=== PATIENT | female | born 1980 | race Caucasian/White ===

== ENCOUNTER 2017-02-01 00:23 | Emergency (ER) | payer MEDICAID ==
[2017-02-01 01:01] LABS: Hematocrit 40.4 % (30.3-42.9); Hemoglobin 13.4 gm/dl (10.1-14.3); Mean Corpuscular HGB Conc 33 % (30-34); Mean Corpuscular Hemoglobin 30 pg (28-32); Mean Corpuscular Volume 91 fl (79-97); Platelet Count 236 K/mm3 (140-440); Red Blood Count 4.44 M/mm3 (3.65-5.03); Red Cell Distribution Width 12.3 % (13.2-15.2); White Blood Count 12.2 K/mm3 (4.5-11.0)
[2017-02-01] MEDS ORDERED: NACL 0.9% 1000 ML 1,000 ML IV ONE ×3 (02:09→03:20)
[2017-02-01] MEDS ORDERED: MORPHINE IV ONE ×2 (02:10→05:14)
[2017-02-01] MEDS ORDERED: TORADOL IV ONE (02:10)
[2017-02-01] MEDS ORDERED: ZOFRAN IV ONE (02:10)
[2017-02-01 02:25] LABS: Basophils % (Manual) 0 % (0.0-1.8); Blastocytes % (Manual) 0 %; Eosinophils % (Manual) 0 % (0.0-4.3)
[2017-02-01 02:26] LABS: Diff Status Complete; RBC Morphology Normal
--- NOTE | 2017-02-01 03:13 | Emergency Department Report ---
ED Female HPI - General Chief complaint: Vaginal Bleeding Stated complaint: POSS MISCARRIAGE 12 WKS PREG Time Seen by Provider: 02/01/17 01:52 Source: patient, family Mode of arrival: Wheelchair Limitations: Language Barrier - History of Present Illness Initial comments: 36 [id number] female with a history 3 previous miscarriages as as to the hospital with recent diagnosis of demise, vaginal bleeding, and abdominal pain. Patient had ultrasound done last week by her CONTENT MANAGEMENT CONSULTANT doctors told that she had a nonviable fetus at approximately 12 weeks gestational age. Patient prescribed Cytotec. Patient place for 200 g tablets into her vagina at approximately 9:30 PM. Several hours later patient developed heavy vaginal bleeding and increased lower abdominal pain described as a hard pressure. Pain is constant rated 10/10 intensity worse with palpation and no alleviating factor reported. Patient is using 6-7 pads per hour and having heavy vaginal bleeding with clots. Mild dizziness reported without reports of syncope or shortness of breath. CONTENT MANAGEMENT CONSULTANT on her paperwork is Dr. Shante Myers - Related Data Previous Rx's Medication Instructions Recorded Last Taken Type Ibuprofen [Motrin 800 MG tab] 800 mg PO Q8HR PRN #30 tablet 02/01/17 Unknown Rx Allergies Allergy/AdvReac Type Severity Reaction Status Date / Time No Known Allergies Allergy Unverified 11/29/14 10:13 ED Review of Systems ROS: Stated complaint: POSS MISCARRIAGE 12 WKS PREG Other details as noted in HPI Comment: All other systems reviewed and negative Other: Constitutional: No fevers chills Eyes: No eye pain visual changes ENT: No ear pain or throat pain Neck: Denies pain Respiratory: Denies cough wheezing shortness of breath Cardiovascular: Denies chest pain, palpitations, syncope GI: As per HPI : Denies dysuria Musculoskeletal: Denies back pain Skin: Denies rash, lesions, erythema Neurologic: Denies headache, numbness, weakness Psychiatric: Denies suicidal ideation, hallucinations ED Past Medical Hx - Past Medical History Previous Medical History?: No - Surgical History Past Surgical History?: Yes Hx Cholecystectomy: Yes Additional Surgical History: C SECTION - Social History Smoking Status: Never Smoker Substance Use Type: None - Medications Home Medications: Home Medications Medication Instructions Recorded Confirmed Last Taken Type Ibuprofen [Motrin 800 MG tab] 800 mg PO Q8HR PRN #30 tablet 02/01/17 Unknown Rx ED Physical Exam - General Limitations: Language Barrier - Other Other exam information: General: No limitations, patient is alert in no acute distress Head exam: Atraumatic, normocephalic Eyes exam: Normal appearance ENT: Moist mucous membrane, normal oropharynx Neck exam: Normal inspection, full range of motion Respiratory exam: Clear to auscultation bilateral, no wheezes, rales, crackles Cardiovascular: Normal rate and rhythm, normal heart sounds Abdomen: Soft, nondistended, suprapubic tenderness, with normal bowel sounds, no rebound, or guarding : Heavy vaginal bleeding with multiple large clots. I am unable to clear the blood to visualize the cervix at this time Extremity: Full range of motion normal inspection no deformity Back: Normal Inspection, full range of motion, no tenderness Neurologic: Alert, oriented x3, cranial nerves intact, no motor or sensory deficit Psychiatric: normal affect, normal mood Skin: Warm, dry, intact ED Course Vital Signs 02/01/17 02/01/17 02/01/17 00:13 00:25 01:29 Temperature 98.4 F Pulse Rate 75 Respiratory 18 Rate Blood Pressure 101/63 114/79 97/47 Blood Pressure [Left] O2 Sat by Pulse 100 Oximetry 02/01/17 02/01/17 02/01/17 01:44 02:00 02:05 Temperature Pulse Rate 84 Respiratory 16 16 Rate Blood Pressure 96/54 Blood Pressure 103/64 [Left] O2 Sat by Pulse 99 100 Oximetry 02/01/17 02/01/17 02/01/17 03:57 04:00 04:46 Temperature Pulse Rate 86 Respiratory 16 Rate Blood Pressure 111/56 110/53 Blood Pressure 119/51 [Left] O2 Sat by Pulse 100 Oximetry 02/01/17 02/01/17 02/01/17 05:00 06:00 07:00 Temperature Pulse Rate Respiratory Rate Blood Pressure 121/64 106/65 101/47 Blood Pressure [Left] O2 Sat by Pulse 100 100 100 Oximetry 02/01/17 02/01/17 08:00 09:00 Temperature Pulse Rate Respiratory Rate Blood Pressure 112/54 118/73 Blood Pressure [Left] O2 Sat by Pulse 100 100 Oximetry - Consultations Consultation #1: 02/01/17 03:[address] Chi anti air warfare operations officer CONTENT MANAGEMENT CONSULTANT physician. Recommends Methergine IM. We discussed case once ultrasound results and to reassess for improvement in bleeding ED Medical Decision Making - Lab Data Result diagrams: 02/01/17 05:38 - Medical Decision Making Dr. Royal to the ED to evaluate patient and remove further clots from the vaginal canal and cervix. Repeat H&H ultrasound ordered per her request. Case s/o to Dr. Ding for review and to recontact the group after repeat labs and ultrasound. - Differential Diagnosis miscarriage, anemia Critical care attestation.: If time is entered above; I have spent that time in minutes in the direct care of this critically ill patient, excluding procedure time. ED Disposition Clinical Impression: Missed with demise before 20 completed weeks of gestation, Episode of heavy vaginal bleeding Disposition: DISCHARGED TO HOME OR SELFCARE Is pt being admited?: No Does the pt Need Aspirin: No Condition: Stable Instructions: Spontaneous Miscarriage (ED) Prescriptions: Ibuprofen [Motrin 800 MG tab] 800 mg PO Q8HR PRN #30 tablet PRN Reason: Pain Referrals: your, mesh man [Other] - 2-3 Days Time of Disposition: 06:05 (s/o to dR Ramírez)
[2017-02-01] MEDS ORDERED: METHERGINE IM ONE (03:24)
--- NOTE | 2017-02-01 03:41 | Ultrasound Report ---
FINAL REPORT PROCEDURE: US OB TRANSVAGINAL TECHNIQUE: Real-time transvaginal sonography of the uterus, placenta, amniotic fluid, adnexa, and fetus was performed with image documentation. Measurements were obtained to determine age/size. M-mode Doppler was used to document heartbeat. CPT 68494 HISTORY: vag bleeding, hx of demise COMPARISON: No prior studies are available for comparison. FINDINGS: No intrauterine is identified. There is a mass in the lower uterine segment endometrial cavity measuring 2.5 centimeters in diameter which could be hematoma. The uterus measures 12.3 x 6.2 x 6.7 centimeters. The endometrium measures 17 millimeters in thickness. The right ovary is unremarkable. The left ovary is not seen. There is no free fluid. IMPRESSION: Probable endometrial hematoma or retained products of conception in the lower uterine segment.
--- NOTE | 2017-02-01 03:43 | Ultrasound Report ---
FINAL REPORT PROCEDURE: US OB transabdominal TECHNIQUE: Real-time transabdominal sonography of the uterus, placenta, amniotic fluid, adnexa, and fetus was performed with image documentation. Measurements were obtained to determine age/size. HISTORY: vag bleeding, hx of demise COMPARISON: No prior studies are available for comparison. FINDINGS: No intrauterine is identified. There is a mass in the lower uterine segment endometrial cavity measuring 2.5 centimeters in diameter which could be hematoma. The uterus measures 12.3 x 6.2 x 6.7 centimeters. The endometrium measures 17 millimeters in thickness. The right ovary is unremarkable. The left ovary is not seen. There is no free fluid. IMPRESSION: Probable endometrial hematoma or retained products of conception in the lower uterine segment.
[2017-02-01] MEDS ORDERED: MORPHINE ONE (05:11)
--- NOTE | 2017-02-01 05:50 | Consultation ---
History of Present Illness Consult date: 02/01/17 Requesting physician: LOYD MESSINA Reason for consult: menorrhagia, other (s/p medical with possible retained pocs) History of present illness: 36 [id number] female with a history 3 previous miscarriages comes to the hospital with recent diagnosis of demise, vaginal bleeding, and abdominal pain. Patient had ultrasound done last week by her SUBACUTE NURSE doctors told that she had a nonviable fetus at approximately 12 weeks gestational age. Patient prescribed Cytotec. Patient place for 200 g tablets into her vagina at approximately 9:30 PM. Several hours later patient developed heavy vaginal bleeding and increased lower abdominal pain described as a hard pressure. Pain is constant rated 10/10 intensity worse with palpation and no alleviating factor reported. Patient is using 6-7 pads per hour and having heavy vaginal bleeding with clots. Mild dizziness reported without reports of syncope or shortness of breath. SUBACUTE NURSE on her paperwork is Dr. Shante Myers. I was consulted due to the heavy vaginal bleeding. Sono showed no IUP but clots vs retained pocs in lower uterine segment. Fetus was noted in specimen container and was brought in by the pt. Past History Past Medical History: no pertinent history Past Surgical History: section SUBACUTE NURSE History: denies: abnormal PAP smear, cancer, chlamydia, fibroids Social history: no significant social history Medications and Allergies Allergies Allergy/AdvReac Type Severity Reaction Status Date / Time No Known Allergies Allergy Unverified 11/29/14 10:13 Home Medications Medication Instructions Recorded Confirmed Last Taken Type Vit #76/Iron,Carb/FA 1 each PO QDAY #30 tablet 11/29/14 Unknown Rx [Prenatabs Rx Tablet] Acetaminophen/Codeine 1 tab PO Q6H PRN #12 tab 12/16/14 Unknown Rx [Acetaminophen-Codeine #3 TAB] Methylergonovine [Methergine] 0.2 mg PO Q8HR #6 tablet 12/16/14 Unknown Rx Acetaminophen/Codeine [Tylenol #3] 1 tab PO Q6H PRN #12 tab 06/07/15 Unknown Rx Review of Systems All systems: negative - Vital Signs Vital signs: Vital Signs BP 101/63 02/01/17 00:13 Temp Pulse Resp BP Pulse Ox 98.4 F 86 16 119/51 100 02/01/17 00:25 02/01/17 04:46 02/01/17 04:46 02/01/17 04:46 02/01/17 04:46 - Physical Exam Abdomen: Positive: normal appearance, soft. Negative: distention, tenderness, guarding Genitourinary (Female): Positive: normal external genitalia, normal perenium ( blood noted) Vulva: both: normal Vagina: Positive: other (moderate bleeding noted and pooling in the vagina. placental tissue seen) Cervix: Positive: other (initially with moderate bleeding. placental tissue seen and removed with ring forcepts but in pieces. was palpated in lower uterus prior to removal. exam after removal showed minimal to no bleeding and cx closed down to 1cm with no tissue palated or seen on exam) Results Result Diagrams: 02/01/17 00:45 Abnormal lab results 02/01/17 02/01/17 Range/Units 00:45 00:45 WBC 12.2 H (4.5-11.0) K/mm3 RDW 12.3 L (13.2-15.2) % Seg Neutrophils # Man 8.2 H (1.8-7.7) K/mm3 HCG, Quant 185.0 H (0-4) mIU/mL All other labs normal. Assessment and Plan - Patient Problems (1) Incomplete Current Visit: Yes Status: Acute Plan to address problem: -appears that bleeding improved with removal of the placental tissue which with the fetus pt brought with her in the hospital will be sent to path -repeat h/h and if stable would recommend d/c home on doxycycline 100mg po bid x7 days -initial pt was hypotensive but bp has improved at this time with decrease in bleeding, would con't to monitor and if stable again would d/c home with f/u with tobacco stemmer of record(Dr. Myers) on Saturday02/04/17. -I d/w pt family member who interprets for pt and pt plan of care and all questions were addressed and answered. (2) Missed with demise before 20 completed weeks of gestation Current Visit: Yes Status: Acute Plan to address problem: -no records available -will send all specimens removed to path.
[2017-02-01 06:20] LABS: Hematocrit 34.1 % (30.3-42.9); Hemoglobin 11.5 gm/dl (10.1-14.3)
--- NOTE | 2017-02-01 07:02 | Ultrasound Report ---
FINAL REPORT PROCEDURE: US OB TRANSVAGINAL TECHNIQUE: Real-time transvaginal sonography of the uterus, placenta, amniotic fluid, adnexa, and fetus was performed with image documentation. Measurements were obtained to determine age/size. M-mode Doppler was used to document heartbeat. CPT 56022 HISTORY: status post missed COMPARISON: Earlier today FINDINGS: Previously noted hematoma in the lower uterine segment is now the endocervical canal measures 18 x 8 x 19 millimeters. The examination is otherwise limited. The uterus measures 9.5 x 5.7 x 5.9 centimeters. Endometrium is thickened at 10 millimeters. IMPRESSION: Previously noted hematoma in the lower uterine segment is now the endocervical canal measures 18 x 8 x 19 millimeters.
--- NOTE | 2017-02-01 07:58 | Event Note ---
Date: 02/01/17 Laboratory studies reviewed and appreciated. Repeat ultrasound reviewed and appreciated. As per gynecology documentation, patient is going to follow up on February [address] Myers. The patient is going to be given Methergine as per the recommendation of the covering curriculum development specialist Dr. Mckinnon. Blood pressure stable. Temperature precautions are reviewed. Plan to be discharged. Vital Signs 02/01/17 02/01/17 02/01/17 00:13 00:25 01:29 Temperature 98.4 F Pulse Rate 75 Respiratory 18 Rate Blood Pressure 101/63 114/79 97/47 Blood Pressure [Left] O2 Sat by Pulse 100 Oximetry 02/01/17 02/01/17 02/01/17 01:44 02:00 02:05 Temperature Pulse Rate 84 Respiratory 16 16 Rate Blood Pressure 96/54 Blood Pressure 103/64 [Left] O2 Sat by Pulse 99 100 Oximetry 02/01/17 02/01/17 02/01/17 03:57 04:00 04:46 Temperature Pulse Rate 86 Respiratory 16 Rate Blood Pressure 111/56 110/53 Blood Pressure 119/51 [Left] O2 Sat by Pulse 100 Oximetry 02/01/17 02/01/17 05:00 06:00 Temperature Pulse Rate Respiratory Rate Blood Pressure 121/64 106/65 Blood Pressure [Left] O2 Sat by Pulse 100 100 Oximetry Lab Results 02/01/17 02/01/17 02/01/17 Range/Units 00:45 00:45 00:45 WBC 12.2 H (4.5-11.0) K/mm3 RBC 4.44 (3.65-5.03) M/mm3 Hgb 13.4 (10.1-14.3) gm/dl Hct 40.4 (30.3-42.9) % MCV 91 (79-97) fl MCH 30 (28-32) pg MCHC 33 (30-34) % RDW 12.3 L (13.2-15.2) % Plt Count 236 (140-440) K/mm3 Lymph # Seafood Processor Add Manual Diff Complete Total Counted 100 Seg Neuts % (Manual) 67.0 (40.0-70.0) % Band Neutrophils % 0 % Lymphocytes % (Manual) 29.0 (13.4-35.0) % Reactive Lymphs % (Man) 2.0 % Monocytes % (Manual) 2.0 (0.0-7.3) % Eosinophils % (Manual) 0 (0.0-4.3) % Basophils % (Manual) 0 (0.0-1.8) % Metamyelocytes % 0 % Myelocytes % 0 % Promyelocytes % 0 % Blast Cells % 0 % Nucleated RBC % Not Reportable Seg Neutrophils # Man 8.2 H (1.8-7.7) K/mm3 Band Neutrophils # 0.0 K/mm3 Lymphocytes # (Manual) 3.5 (1.2-5.4) K/mm3 Abs React Lymphs (Man) 0.2 K/mm3 Monocytes # (Manual) 0.2 (0.0-0.8) K/mm3 Eosinophils # (Manual) 0.0 (0.0-0.4) K/mm3 Basophils # (Manual) 0.0 (0.0-0.1) K/mm3 Metamyelocytes # 0.0 K/mm3 Myelocytes # 0.0 K/mm3 Promyelocytes # 0.0 K/mm3 Blast Cells # 0.0 K/mm3 WBC Morphology Not Reportable Hypersegmented Neuts Not Reportable Hyposegmented Neuts Not Reportable Hypogranular Neuts Not Reportable Smudge Cells Not Reportable Toxic Granulation Not Reportable Toxic Vacuolation Not Reportable Dohle Bodies Not Reportable Pelger-Huet Anomaly Not Reportable Moise Rods Not Reportable Platelet Estimate Appears normal Clumped Platelets Not Reportable Plt Clumps, EDTA Not Reportable Large Platelets Not Reportable Giant Platelets Not Reportable Platelet Satelliting Not Reportable Plt Morphology Comment Not Reportable RBC Morphology Normal Dimorphic RBCs Not Reportable Polychromasia Not Reportable Hypochromasia Not Reportable Poikilocytosis Not Reportable Anisocytosis Not Reportable Microcytosis Not Reportable Macrocytosis Not Reportable Spherocytes Not Reportable Pappenheimer Bodies Not Reportable Sickle Cells Not Reportable Target Cells Not Reportable Tear Drop Cells Not Reportable Ovalocytes Not Reportable Helmet Cells Not Reportable Solis-Zebulon Bodies Not Reportable Jefferson Rings Not Reportable Garner Cells Not Reportable Bite Cells Not Reportable Crenated Cell Not Reportable Elliptocytes Not Reportable Acanthocytes (Spur) Not Reportable Rouleaux Not Reportable Hemoglobin C Crystals Not Reportable Schistocytes Not Reportable Malaria parasites Not Reportable Ace Bodies Not Reportable Hem Pathologist Commnt No HCG, Quant 185.0 H (0-4) mIU/mL Blood Type A POSITIVE Antibody Screen TNR NIRAJ Antibody Screen Negative 02/01/17 Range/Units 05:38 WBC (4.5-11.0) K/mm3 RBC (3.65-5.03) M/mm3 Hgb 11.5 (10.1-14.3) gm/dl Hct 34.1 D (30.3-42.9) % MCV (79-97) fl MCH (28-32) pg MCHC (30-34) % RDW (13.2-15.2) % Plt Count (140-440) K/mm3 Lymph # Add Manual Diff Total Counted Seg Neuts % (Manual) (40.0-70.0) % Band Neutrophils % % Lymphocytes % (Manual) (13.4-35.0) % Reactive Lymphs % (Man) % Monocytes % (Manual) (0.0-7.3) % Eosinophils % (Manual) (0.0-4.3) % Basophils % (Manual) (0.0-1.8) % Metamyelocytes % % Myelocytes % % Promyelocytes % % Blast Cells % % Nucleated RBC % Seg Neutrophils # Man (1.8-7.7) K/mm3 Band Neutrophils # K/mm3 Lymphocytes # (Manual) (1.2-5.4) K/mm3 Abs React Lymphs (Man) K/mm3 Monocytes # (Manual) (0.0-0.8) K/mm3 Eosinophils # (Manual) (0.0-0.4) K/mm3 Basophils # (Manual) (0.0-0.1) K/mm3 Metamyelocytes # K/mm3 Myelocytes # K/mm3 Promyelocytes # K/mm3 Blast Cells # K/mm3 WBC Morphology Hypersegmented Neuts Hyposegmented Neuts Hypogranular Neuts Smudge Cells Toxic Granulation Toxic Vacuolation Dohle Bodies Pelger-Huet Anomaly Moise Rods Platelet Estimate Clumped Platelets Plt Clumps, EDTA Large Platelets Giant Platelets Platelet Satelliting Plt Morphology Comment RBC Morphology Dimorphic RBCs Polychromasia Hypochromasia Poikilocytosis Anisocytosis Microcytosis Macrocytosis Spherocytes Pappenheimer Bodies Sickle Cells Target Cells Tear Drop Cells Ovalocytes Helmet Cells Solis-Zebulon Bodies Jefferson Rings Garner Cells Bite Cells Crenated Cell Elliptocytes Acanthocytes (Spur) Rouleaux Hemoglobin C Crystals Schistocytes Malaria parasites Ace Bodies Hem Pathologist Commnt HCG, Quant (0-4) mIU/mL Blood Type Antibody Screen NIRAJ Antibody Screen
[2017-02-01 09:19] VITALS: BP 118/73
== END 2017-02-01 06:17 | disposition home or self-care (01) ==
LOC: ED 00:23
DX: O02.1 Missed abortion (principal); Z3A.12 12 weeks gestation of pregnancy
CPT/HCPCS: 36415; 76801; 76817; 84702; 85007; 85014; 85018; 85025; 86850; 86900; 86901; 88305; 96361; 96372; 96374; 96375; 96376; 99284; J1885; J2210; J2270; J2405; J7030; 88300

== ENCOUNTER 2019-05-01 09:09 | Inpatient (IN) | payer MEDICAID, OTHER ==
[2019-05-01] MEDS ORDERED: BICITRA PO ONE (09:22)
[2019-05-01] MEDS ORDERED: REGLAN IV ONE (09:22)
[2019-05-01] MEDS ORDERED: PEPCID IV ONE (09:22)
[2019-05-01] MEDS ORDERED: ANCEF/STERILE WATER 2 GM/20 ML 2 GM/20 ML SYRINGE IV NR (10:00)
[2019-05-01] MEDS ORDERED: PITOCin/NS 20 UNIT/1000ML DRIP 20 UNITS/1,000 ML BAG IV SCH ×2 (10:00→15:00)
[2019-05-01] MEDS ORDERED: DEXMEDETOMIDINE IV ONE (10:32)
[2019-05-01] MEDS: LACTATED RINGERS 1,000 ML IV SCH ×2 (10:49→10:56)
[2019-05-01 10:51] LABS: Basophils % (Auto) 0.4 % (0.0-1.8); Eosinophils % (Auto) 0.2 % (0.0-4.3); Hematocrit 38.3 % (30.3-42.9); Hemoglobin 13.4 gm/dl (10.1-14.3); Mean Corpuscular HGB Conc 35 % (30-34); Mean Corpuscular Volume 92 fl (79-97); Monocytes # (Auto) 0.5 K/mm3 (0.0-0.8); Monocytes % (Auto) 5.2 % (0.0-7.3); Platelet Count 215 K/mm3 (140-440); Red Blood Count 4.15 M/mm3 (3.65-5.03); Red Cell Distribution Width 13.1 % (13.2-15.2)
--- NOTE | 2019-05-01 11:21 | History and Physical Report ---
History of Present Illness Date of examination: 05/01/19 Date of admission: 05/01/19 09:09 Chief complaint: Here for a delivery. History of present illness: . X1 c/section. FLORENCIA 05/04/2019 Past History Past Medical History: no pertinent history - Obstetrical History : 7 Medications and Allergies Allergies Allergy/AdvReac Type Severity Reaction Status Date / Time No Known Allergies Allergy Unverified 11/29/14 10:13 Home Medications Medication Instructions Recorded Confirmed Last Taken Type Ibuprofen [Motrin 800 MG tab] 800 mg PO Q8HR PRN #30 tablet 02/01/17 Unknown Rx Active Meds: Active Medications Cefazolin Sodium (Ancef/Sterile Water 2 Gm/20 Ml) 2 gm in 20 mls @ 80 mls/hr IV PREOP NR; Protocol Stop: 05/01/19 23:59 Oxytocin/Sodium Chloride (Pitocin/Ns 20 Unit/1000ml Drip) 20 units in 1,000 mls @ 0 mls/hr IV TITR JENAE Lactated Ringer's (Lactated Ringers) 1,000 mls @ 2,250 mls/hr IV PREOP JENAE Stop: 05/02/19 10:27 Last Admin: 05/01/19 10:56 Dose: 2,250 mls/hr Documented by: Review of Systems All systems: negative - Vital Signs Vital signs: Vital Signs Pulse BP 73 126/62 05/01/19 09:48 05/01/19 09:48 Temp Pulse Resp BP Pulse Ox 97.9 F 73 16 126/62 05/01/19 10:18 05/01/19 09:48 05/01/19 10:18 05/01/19 09:48 - Physical Exam Breasts: Positive: deferred Lungs: Positive: Clear to auscultation Abdomen: Positive: normal appearance, distention. Negative: tenderness - Obstetrical FHR: category 1 Results Result Diagrams: 05/01/19 09:30 Abnormal lab results 05/01/19 Range/Units 09:30 MCHC 35 H (30-34) % RDW 13.1 L (13.2-15.2) % Seg Neutrophils % 74.2 H (40.0-70.0) % All other labs normal. Assessment and Plan - Patient Problems (1) Term Current Visit: Yes Status: Acute (2) Previous delivery affecting , antepartum Current Visit: Yes Status: Acute Plan to address problem: section imminent.
--- NOTE | 2019-05-01 11:33 | Anesthesia Consultation ---
Anesthesia Consult and Med Hx Date of service: 05/01/19 - Airway Anesthetic Teeth Evaluation: Good ROM Head & Neck: Adequate Mental/Hyoid Distance: Adequate Mallampati Class: Class II Intubation Access Assessment: Good - Pre-Operative Health Status ASA Pre-Surgery Classification: ASA2 Proposed Anesthetic Plan: General - Pulmonary Hx Asthma: No COPD: No Hx Pneumonia: No - Cardiovascular System Hx Hypertension: No - Central Nervous System Hx Seizures: No Hx Psychiatric Problems: No - Endocrine Hx Renal Disease: No Hx End Stage Renal Disease: No Hx Hypothyroidism: No Hx Hyperthyroidism: No - Hematic Hx Anemia: No Hx Sickle Cell Disease: No - Other Systems Hx Alcohol Use: No
[2019-05-01] MEDS ORDERED: PHENERGAN PO PRN (11:34)
[2019-05-01] MEDS ORDERED: NARCAN 0.4 MG/1 ML IV PRN ×2 (11:34→14:16)
[2019-05-01] MEDS ORDERED: DILAUDID IV PRN ×2 (11:34)
[2019-05-01] MEDS ORDERED: PHENERGAN PR PRN (11:34)
[2019-05-01] MEDS ORDERED: ZOFRAN IV PRN ×2 (11:34→14:16)
--- NOTE | 2019-05-01 11:34 | Anesthesia Day of Surgery ---
Anesthesia Day of Surgery - Day of Surgery Patient Examined: Yes Patient H&P Reviewed: Yes Patient is NPO: Yes
[2019-05-01] MEDS ORDERED: SODIUM CHLORIDE FLUSH SYRINGE 10 ML IV NR (12:00)
[2019-05-01] MEDS ORDERED: WATER FOR IRRIG STERILE IR ONE (12:48)
[2019-05-01] MEDS ORDERED: NACL 0.9% IR ONE (12:48)
[2019-05-01] MEDS ORDERED: ZOFRAN ONE (13:44)
[2019-05-01] MEDS ORDERED: PHENYLEPHRINE/NS Syringe 1,000 MCG/10 ML IV ONE (13:44)
[2019-05-01] MEDS ORDERED: TORADOL ONE (13:44)
[2019-05-01] MEDS ORDERED: XYLOCAINE MPF 2% ONE (14:00)
[2019-05-01] MEDS ORDERED: LANSINOH TP PRN (14:16)
[2019-05-01] MEDS ORDERED: TYLENOL PO PRN (14:16)
[2019-05-01] MEDS ORDERED: TUCKS PAD TP PRN (14:16)
--- NOTE | 2019-05-01 14:18 | Post Anesthesia Evaluation ---
- Post Anesthesia Evaluation Patient Participated: Yes Airway Patent: Yes Stable Respiratory Function: Yes Nausea/Vomiting: No Temp > 96.8F: Yes Pain Manageable: Yes Adequeate Hydration: Yes Anesthesia Complications: No Block Receding Appropriately: Yes Patient on Ventilator: No
--- NOTE | 2019-05-01 14:42 | Operative Report ---
Operative Report Operative Report: Date of Surgery: . Admitting Dx: Term , 3 previous cesareans., probable adhesions. Post Op Dx: Same, plus peritoneal adhesions. Procedures: delivery, Lysis of adhesions. Surgeon: MD Tavares Caddie, Tomasz Chatterjee CRNA. Anesthesia: Spinal block. Complications: none EBL: 300cc Findings: Live baby boy 7lbs 5 oz, Apgars 8/9. In vertex presentation. Both ovaries and fallopian tubes were grossly normal. The inferior aspect of the greater omentum was bound to the anterior parietal peritoneum inferior to the umbilical stump. Procedure in details: The patient was taken to the operating room and given a spinal block. She was placed in the straight supine postion with a slight lateral tilt. An indwelling Epperson's catheter was placed. She was draped. A time out was done. With the go ahead from the digital marketing lead a Pfannenstiel incision was made. This was placed over a previous scar. The Fascia was divided transversely. The recti abdominis muscle flaps were dissected off the fascia using blunt and sharp dissections. The anterior parietal peritoneum was carefully identified and cut. The laparotomy was widened by stretching. The Bladder blade was applied. The utero vescical peritoneal flap was divided transversely allowing the bladder to be displaced caudally. The uterine incision was placed transversely in the lower segment. The cavity of the uterus was entered bluntly with the hemostat. The amniotic sac ruptured with clear fluid. The head of the was lifted out of the pelvis and delivered using fundal pressure. The airways were bulb suctioned beginning with the mouth. The umbilical cord was double clamped and divided. The baby was safely passed over to the Pediatric team. The placenta was manually removed. The uterine cavity was explored and was empty of any placental remnants. The uterine incision was repaired in one layer with #0 vicryl. The suture line was hemostatic. The Peritoneal adhesions were divided. Blood and clots were cleared from the peritoneal cavity. The anterior parietal peritoneum was closed with #0vicryl. The fascia was closed with #0 vicryl. The skin was closed subcuticularly with #4-0 vicryl on a George needle. The patient tolerated the procedure well. There were no complications. EBL was 300cc. The sponge and instrument counts were correct. The Patient was transferred to the recovery room in very good condition.
[2019-05-01] MEDS ORDERED: SODIUM CHLORIDE FLUSH SYRINGE 10 ML IV SCH (15:00)
[2019-05-01] MEDS: TORADOL IV PRN ×2 (17:48→23:24)
[2019-05-01] MEDS: ANCEF/NS 1 GM/50 ML 1 GM/50 ML BAG IV SCH (17:49)
[2019-05-01] MEDS ORDERED: LACTATED RINGERS 1,000 ML IV SCH (22:00)
[2019-05-02 02:15] LABS: Hematocrit 34.3 % (30.3-42.9); Hemoglobin 11.7 gm/dl (10.1-14.3)
[2019-05-02] MEDS: ANCEF/NS 1 GM/50 ML 1 GM/50 ML BAG IV SCH (02:23)
[2019-05-02] MEDS: TORADOL IV PRN ×2 (06:24→13:50)
[2019-05-02] MEDS: FEOSOL PO SCH (11:11)
--- NOTE | 2019-05-02 12:09 | Progress Note ---
Assessment and Plan A: /postop day 1 S/P repeat low transverse section with lysis of adhesions. P: Encouraged ambulation. Advance diet today. Subjective - Subjective Date of service: 05/02/19 Principal diagnosis: /postop day 1 S/P repeat LTCS with lysis of adhesions Interval history: /postop day 1 S/P repeat low transverse section with lysis of adhesions. Patient is doing well. Bottlefeeding. Patient reports small amount of lochia. Voiding without difficulty. Ambulating well. Passing gas. So far has tolerated a liquid diet; plans to eat regular diet for lunch today. Patient denies headache, dizziness, cough, shortness of breath, chest pain, abdominal pain, leg pain, nausea or vomiting, or heavy bleeding. Patient reports: appetite normal, voiding normally, pain well controlled, flatus, ambulating normally, no dizzy ambulation, no nauseated : doing well Objective - Vital Signs Latest vital signs: Vital Signs Temp Pulse Resp BP BP Pulse Ox 05/02/19 08:08 98.6 F 66 18 116/58 97 05/02/19 03:45 98.5 F 63 18 112/52 112/52 96 05/02/19 00:50 98.0 F 69 18 110/60 96 05/01/19 20:30 98.7 F 66 18 112/56 97 05/01/19 16:58 97.4 F L 75 18 100/44 99 05/01/19 15:05 75 17 108/70 100 05/01/19 14:55 66 15 103/47 100 05/01/19 14:40 78 17 98 05/01/19 14:25 13 102/49 98 05/01/19 14:20 73 12 100/49 98 05/01/19 14:15 97.9 F 73 16 102/54 98 Intake and Output 05/01/19 05/02/19 05/02/19 23:59 07:59 15:59 Intake Total 1110 120 600 Output Total 90 500 350 Balance 1020 -380 250 Intake: IV 50 ANCEF/NS 1 GM/50 ML 1 gm 50 In 50 ml @ 100 mls/hr IV Q8H [facility] Rx#:[id number] Oral 660 120 360 Intake, Free Water 400 240 Output: Urine 90 500 350 Indwelling Catheter 90 200 Void 300 350 Other: Total, Intake Amount 120 120 360 Total, Output Amount 90 300 350 # Voids Void 1 2 - Exam Abdomen: Present: normal appearance, soft, normal bowel sounds. Absent: distention, tenderness, guarding, rigidity Uterus: Present: normal, firm, fundal height below umbilicus. Absent: boggin ess, tenderness Extremities: Present: normal. Absent: tenderness, edema Incision: Present: normal, dry, intact, dressed
[2019-05-02] MEDS: NORCO 5/325 PO PRN (13:51)
[2019-05-02] MEDS: IBUPROFEN PO PRN (22:14)
[2019-05-03] MEDS: IBUPROFEN PO PRN (10:04)
[2019-05-03] MEDS: FEOSOL PO SCH (10:04)
--- NOTE | 2019-05-03 11:25 | Progress Note ---
Assessment and Plan A: /postop day 2 S/P repeat low transverse section with lysis of adhesions. P: Continue current management. Encouraged patient to ambulate. Subjective - Subjective Date of service: 05/03/19 Principal diagnosis: /postop day 2 S/P repeat LTCS with lysis of adhesions Interval history: /postop day 2 S/P repeat low transverse section with lysis of adhesions. Patient is doing well. Bottlefeeding. Patient reports small amount of lochia. Voiding without difficulty. Ambulating well. Passing gas. Tolerating a regular diet. Patient denies headache, dizziness, cough, shortness of breath, chest pain, abdominal pain, leg pain, nausea or vomiting, or heavy bleeding. Patient reports: appetite normal, voiding normally, pain well controlled, flatus, ambulating normally, no dizzy ambulation, no nauseated [place]: doing well Objective - Vital Signs Latest vital signs: Vital Signs Temp Pulse Resp BP Pulse Ox 05/03/19 10:04 18 05/03/19 08:23 97.6 F 64 18 125/71 98 05/03/19 00:18 98.0 F 57 L 20 122/65 97 05/02/19 23:14 18 05/02/19 22:14 18 05/02/19 16:24 98.4 F 58 L 18 140/63 100 Intake and Output 05/02/19 05/03/19 05/03/19 23:59 07:59 15:59 Intake Total 1440 480 240 Output Total 1000 Balance 440 480 240 Intake: Oral 720 480 240 Intake, Free Water 720 Output: Urine 1000 Indwelling Catheter 1000 Other: Total, Intake Amount 240 240 240 Total, Output Amount 1000 # Voids Indwelling Catheter 1 1 Void 1 - Exam Abdomen: Present: normal appearance, soft, normal bowel sounds. Absent: distention, tenderness, guarding, rigidity Uterus: Present: normal, firm, fundal height below umbilicus. Absent: bogginess, tenderness Extremities: Present: normal. Absent: tenderness, edema Incision: Present: normal, dry, intact, dressed
[2019-05-04] MEDS: IBUPROFEN PO PRN (07:42)
[2019-05-04] MEDS: NORCO 5/325 PO PRN (07:42)
[2019-05-04 10:16] VITALS: BP 135/72
--- NOTE | 2019-05-04 10:19 | Progress Note ---
Assessment and Plan - Patient Problems (1) S/P repeat low transverse Current Visit: Yes Status: Acute Plan to address problem: POD 3 - stable BP this AM 140/69. Repeat BP 135/72. 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 Notes Patient reports: appetite normal, voiding normally, pain well controlled, flatus, ambulating normally, other (reports lack of sleep last night), no dizzy ambulation : doing well, nursing well Objective - Vital Signs Latest vital signs: Vital Signs Temp Pulse Resp BP BP Pulse Ox 05/04/19 08:15 98 F 80 20 140/69 05/04/19 00:50 97.8 F 77 16 117/68 99 05/03/19 16:26 98.5 F 72 18 127/71 99 Intake and Output 05/03/19 05/04/19 05/04/19 23:59 07:59 15:59 Intake Total 960 320 Balance 960 320 Intake: Oral 480 320 Intake, Free Water 480 Other: Total, Intake Amount 480 320 # Voids Void 2 1 - Exam Cardiovascular: Present: Regular rate Lungs: Present: Clear to auscultation, Normal air movement Abdomen: Present: normal appearance Vulva: both: normal Uterus: Present: normal, firm, fundal height below umbilicus Extremities: Present: normal Incision: Present: normal, dry, intact, other (steri strips in place) Comments: small lochia
--- NOTE | 2019-05-04 10:23 | Discharge Summary ---
Providers - Providers Date of Admission: 05/01/19 09:09 Date of discharge: 05/04/19 Attending physician: BRIAN REESE MD Primary care physician: JOSE GUADALUPE HERMOSILLO MD Hospitalization Reason for admission: section, IUP at term Delivery: Procedure: repeat low transverse Episiotomy: none Laceration: none Incision: normal, dry, intact, other (steri strips in place) Other procedures: none complications: none Discharge diagnosis: IUP at term delivered baby: male Hospital course: Uncomplicated Condition at discharge: Stable Disposition: DC-01 TO HOME OR SELFCARE - Discharge Diagnoses (1) S/P repeat low transverse Status: Acute Plan - Discharge Medications Prescriptions: Ibuprofen [Motrin 800 MG tab] 800 mg PO Q6H PRN #30 tablet PRN Reason: Pain, Mild (1-3) oxyCODONE /ACETAMINOPHEN [Percocet 5/325] 1 - 2 tab PO Q4HR #30 tab - Provider Discharge Summary Activity: routine, no sex for 6 weeks, no heavy lifting 4 weeks, no strenuous exercise Diet: routine Instructions: routine Additional instructions: [] Smoking cessation referral if applicable(refer to patient education folder for contact #) [] Refer to [facility]'s [facility] Booklet Call your doctor immediately for: * Fever > 100.5 * Heavy vaginal bleeding ( >1 pad per hour) * Severe persistent headache * Shortness of breath * Reddened, hot, painful area to leg or breast * Drainage or odor from incision. * Keep incision clean and dry at all times and follow doctor's instructions regarding bathing/showering - Follow up plan Follow up: JOSE GUADALUPE HERMOSILLO MD [Primary Care Provider] - 7 Days (Follow up at [facility] as needed or in 1 week for incision check) Forms: [facility] Discharge Summary, Discharge Signature Page
[2019-05-04] MEDS: FEOSOL PO SCH (11:30)
== END 2019-05-04 11:42 | disposition home or self-care (01) | DRG 788 ==
LOC: UNDOADMIN 09:09 → APU 09:09 → NN 13:32 → UNDOADMIN 13:32 → OB 17:38
PROVIDERS: ADMIT Obstetrics & Gynecology; ATTEND Obstetrics & Gynecology
PROC: 10D00Z1 Extraction of Products of Conception, Low, Open Approach (ICD-10-PCS; principal; 2019-05-01)
DX: O34.211 Maternal care for low transverse scar from previous cesarean delivery (principal); Z37.0 Single live birth; Z3A.39 39 weeks gestation of pregnancy
CPT/HCPCS: 36415; 85014; 85018; 85025; 86592; 86850; 86900; 86901; G0378; J0690; J1885; J2370; J2405; J2590; J2765; J3490; J7120

== ENCOUNTER 2021-04-23 21:40 | Emergency (ER) | payer SELFPAY ==
[2021-04-24 01:07] VITALS: BP 125/68
[2021-04-24] MEDS ORDERED: IBUPROFEN 600 MG TAB PO ONE ×2 (01:07→02:07)
[2021-04-24] MEDS ORDERED: ONDANSETRON 4 MG ODT TAB PO ONE ×2 (01:07→02:07)
[2021-04-24] MEDS ORDERED: oxyCODONE /ACETAMINOPHEN 5-325MG TAB PO ONE (01:07)
--- NOTE | 2021-04-24 01:44 | XRay Report ---
RIGHT WRIST 3 VIEWS INDICATION / CLINICAL INFORMATION: FALL - WRIST INJURY, DEFORMITY COMPARISON: None available. FINDINGS: BONES / JOINT(S): There is a fracture of the distal radius which extends into the radiocarpal joint. There is mild lateral displacement of the distal fragment. There is a fracture of the ulnar styloid p rocess as well. No significant arthritis. SOFT TISSUES: There is soft tissue swelling ADDITIONAL FINDINGS: None. Signer Name: Chris Cruz MD Signed: 04/24/2021 1:40 AM Workstation Name: [id number]
[2021-04-24] MEDS ORDERED: HYDROcodone/ACETAMINOPHEN 7.5-325MG TAB PO ONE (02:07)
--- NOTE | 2021-04-24 02:09 | Emergency Department Report ---
ED Fall HPI - General Chief Complaint: Extremity Injury, Upper Stated Complaint: FALL WRIST PAINS Source: patient Mode of arrival: Ambulatory - History of Present Illness Initial Comments: Patient is a 40-year-old female with no past medical history presents to the ED with complaint of acute onset persistent severe right wrist pain, swelling and mild deformity after she slipped on the floor and landed on her right wrist as she tried to brace herself to break her fall about 2 hours ago. Patient states that she has not been able to perform any active range of motion of the right wrist right hand because of severe pain. Patient denies dizziness, syncope, loss of consciousness, head or neck injuries, chest pain, shortness of breath, back pain, abdominal pain, numbness and tingling or weakness of upper and lower extremities bilaterally. 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 denies: headache, neck pain, numbness, weakness, chest paint, shortness of breath, abdominal pain, hematuria, unable to walk, lightheaded, vertigo, confusion, other - Related Data Previous Rx's Medication Instructions Recorded Last Taken Type Ibuprofen [Motrin 800 MG tab] 800 mg PO Q8HR PRN #30 tablet 02/01/17 Unknown Rx oxyCODONE /ACETAMINOPHEN [Percocet 1 - 2 tab PO Q4HR #30 tab 05/01/19 Unknown Rx 5/325] Ibuprofen [Motrin 800 MG tab] 800 mg PO Q6H PRN #30 tablet 05/04/19 Unknown Rx HYDROcodone/APAP 5-325 [[place] 1 each PO Q6HR PRN #12 tablet 04/24/21 Unknown Rx 5/325] Ibuprofen [Motrin] 800 mg PO Q8HR PRN #30 tablet 04/24/21 Unknown Rx Allergies Allergy/AdvReac Type Severity Reaction Status Date / Time No Known Allergies Allergy Unverified 11/29/14 10:13 ED Review of Systems ROS: Stated complaint: FALL WRIST PAINS Other details as noted in HPI Constitutional: denies: chills, fever Eyes: denies: eye pain, eye discharge, vision change ENT: denies: ear pain, throat pain Respiratory: denies: cough, shortness of breath, wheezing Cardiovascular: denies: chest pain, palpitations Endocrine: no symptoms reported Gastrointestinal: denies: abdominal pain, nausea, diarrhea Genitourinary: denies: urgency, dysuria, discharge Musculoskeletal: joint swelling (Right wrist joint swelling), arthralgia (Right wrist pain with swelling and mild deformity). denies: back pain Skin: denies: rash, lesions Neurological: denies: headache, weakness, paresthesias Psychiatric: denies: anxiety, depression Hematological/Lymphatic: denies: easy bleeding, easy bruising ED Past Medical Hx - Past Medical History Hx Hypertension: No Hx Congestive Heart Failure: No Hx Diabetes: No Hx Deep Vein Thrombosis: No Hx Renal Disease: No Hx Sickle Cell Disease: No Hx Seizures: No Hx Asthma: No Hx COPD: No Hx HIV: No - Surgical History Hx Cholecystectomy: Yes Additional Surgical History: C SECTION - Social History Smoking Status: Never Smoker - Medications Home Medications: Home Medications Medication Instructions Recorded Confirmed Last Taken Type Ibuprofen [Motrin 800 MG tab] 800 mg PO Q8HR PRN #30 tablet 02/01/17 Unknown Rx oxyCODONE /ACETAMINOPHEN [Percocet 1 - 2 tab PO Q4HR #30 tab 05/01/19 Unknown Rx 5/325] Ibuprofen [Motrin 800 MG tab] 800 mg PO Q6H PRN #30 tablet 05/04/19 Unknown Rx HYDROcodone/APAP 5-325 [[place] 1 each PO Q6HR PRN #12 tablet 04/24/21 Unknown Rx 5/325] Ibuprofen [Motrin] 800 mg PO Q8HR PRN #30 tablet 04/24/21 Unknown Rx ED Physical Exam - General Limitations: No Limitations General appearance: alert, in no apparent distress - Head Head exam: Present: atraumatic, normocephalic, normal inspection - Eye Eye exam: Present: normal appearance, PERRL, EOMI Pupils: Present: normal accommodation - ENT ENT exam: Present: normal exam, normal orophraynx, mucous membranes moist, TM's normal bilaterally, normal external ear exam - Neck Neck exam: Present: normal inspection, full ROM. Absent: tenderness, lymphadenopathy - Respiratory Respiratory exam: Present: normal lung sounds bilaterally. Absent: respiratory distress, wheezes, rhonchi, chest wall tenderness, accessory muscle use, prolonged expiratory - Cardiovascular Cardiovascular Exam: Present: regular rate, normal rhythm, normal heart sounds. Absent: systolic murmur, diastolic murmur, rubs, gallop - GI/Abdominal GI/Abdominal exam: Present: soft, normal bowel sounds. Absent: tenderness, guarding, rebound, hyperactive bowel sounds, hypoactive bowel sounds, organomegaly - Extremities Exam Extremities exam: Present: normal inspection, tenderness (Palpable severe right wrist tenderness, mild swelling with mild deformity and limited range of motion due to pain), normal capillary refill, joint swelling. Absent: full ROM (Limited range of motion of the right wrist due to pain), calf tenderness - Back Exam Back exam: Present: normal inspection, full ROM. Absent: tenderness, CVA tenderness (R), CVA tenderness (L), muscle spasm, paraspinal tenderness, vertebral tenderness - Neurological Exam Neurological exam: Present: alert, oriented X3, CN II-XII intact, normal gait, reflexes normal - Psychiatric Psychiatric exam: Present: normal affect, normal mood - Skin Skin exam: Present: warm, dry, intact, normal color. Absent: rash ED Course Vital Signs 04/24/21 01:02 Temperature 97.8 F Pulse Rate 65 Respiratory 16 Rate Blood Pressure 125/68 O2 Sat by Pulse 100 Oximetry ED Medical Decision Making - Radiology Data Radiology results: report reviewed, image reviewed [facility] [address] [place] [address] XRay Report Signed Patient: VENKAT TADEO MR#: [id number] : 1980 Acct:[id number] Age/Sex: 40 / F ADM Date: 04/23/21 Loc: ED Attending Dr: Ordering Physician: POLA KNIGHT Date of Service: 04/24/21 Procedure(s): XR wrist 3+V RT Accession Number(s): [id number] cc: POAL KNIGHT Fluoro Time In Minutes: RIGHT WRIST 3 VIEWS INDICATION / CLINICAL INFORMATION: FALL - WRIST INJURY, DEFORMITY COMPARISON: None available. FINDINGS: BONES / JOINT(S): There is a fracture of the distal radius which extends into the radiocarpal joint. There is mild lateral displacement of the distal fragment. There is a fracture of the ulnar styloid process as well. No significant arthritis. SOFT TISSUES: There is soft tissue swelling ADDITIONAL FINDINGS: None. Signer Name: Chris Cruz MD Signed: 04/24/2021 1:40 AM Workstation Name: [id number] Transcribed By: SS Dictated By: Chris Cruz MD Electronically Authenticated By: Chris Cruz MD Signed Date/Time: 04/24/21139 DD/ 8 TD/TT: Print - Medical Decision Making This is a 40-year-old female with no past medical history presents to the ED with complaint of acute onset persistent severe right wrist pain, swelling and mild deformity after she slipped on the floor and landed on her right wrist as she tried to brace herself to break her fall about 2 hours ago. Patient states that she has not been able to perform any active range of motion of the right wrist right hand because of severe pain. In the ED, patient is alert and oriented x3 and is not in any distress but appears to be in significant pain. The right wrist x-ray showed a fracture of the distal radius which extends into the radiocarpal joint. There is mild lateral displacement of the distal fragment. There is a fracture of the ulnar styloid process as well. No significant arthritis. The patient was treated for pain in the ED. Right wrist fracture was splinted with sugartong splint and the right hand immobilized in an arm sling. Patient was discharged home on pain medications and given a referral to the orthopedic surgeon Dr. Olson for further evaluation and follow- up. Patient was advised to contact Dr. Olson's office first thing this morning April 24, 2021 to schedule a follow-up appointment for further evaluation. Patient was advised return to the ED immediately if symptoms get worse. - Differential Diagnosis Wrist fracture; hand fracture; wrist sprain; forearm contusion Critical care attestation.: If time is entered above; I have spent that time in minutes in the direct care of this critically ill patient, excluding procedure time. ED Disposition Clinical Impression: Colles' fracture of right radius, initial encounter for closed fracture Fracture of right ulnar styloid Qualifiers: Encounter type: initial encounter Fracture type: closed Fracture alignment: nondisplaced Qualified Code(s): S52.614A - Nondisplaced fracture of right ulna styloid process, initial encounter for closed fracture Disposition: TO HOME OR SELFCARE Is pt being admited?: No Does the pt Need Aspirin: No Condition: Stable Instructions: Radial Head Fracture, [id number], Colles Fracture, Cast or Splint Care, Adult Additional Instructions: La radiografa de la mueca izquierda muestra un radio distal y fracturas estiloides. Por lo tanto, tome los medicamentos con alimentos, terrance muchos lquidos y alber un seguimiento con el cirujano ortopdico Dr. Olson en 24 a 48 horas para muna reevaluacin. Comunquese con la oficina del Dr. Olson a primera hora esta maana, 2020 para programar muna lu de seguimiento. Regrese al servicio de urgencias de inmediato si los sntomas empeoran. Prescriptions: Ibuprofen [Motrin] 800 mg PO Q8HR PRN #30 tablet PRN Reason: Pain , Severe (7-10) HYDROcodone/APAP 5-325 [[place] 5/325] 1 each PO Q6HR PRN #12 tablet PRN Reason: Pain Referrals: CHHAYA OLSON MD [Staff Physician] - 2-3 Days Forms: Work/School Release Form(ED) Time of Disposition: 02:10 Print Language: YORUBA
== END 2021-04-24 02:30 | disposition home or self-care (01) ==
LOC: ED 21:40
DX: S52.531A Colles' fracture of right radius, initial encounter for closed fracture (principal); S52.614A Nondisplaced fracture of right ulna styloid process, initial encounter for closed fracture; Z90.49 Acquired absence of other specified parts of digestive tract; Z98.890 Other specified postprocedural states; W01.0XXA Fall on same level from slipping, tripping and stumbling without subsequent striking against object, initial encounter; Y93.89 Activity, other specified; Y92.89 Other specified places as the place of occurrence of the external cause; Y99.8 Other external cause status
CPT/HCPCS: 99284; Q0162